=== PATIENT | male | born 1990 | race Caucasian/White ===

== ENCOUNTER → 2016-06-04 | Outpatient (CLI) | payer BC ==
[2016-06-04 11:54] LABS: Basophils % (A) 1 %; CH 34.1; CHCM 35.6; Eosinophils # (A) 0.1 k/uL (0-0.7); Eosinophils % (A) 3 %; HCT 51.2 % (39.0-53.0); HDW 2.67; HGB 17.8 gm/dL (13.0-17.5); Luc # (Auto) 0.18; Luc % (Auto) 3; Lymphocytes # (A) 0.8 k/uL (1.0-4.8); Lymphocytes % (A) 14 %; MCH 33.5 pg (25.0-35.0); MCHC 34.8 g/dL (31.0-37.0); MCV 96.4 fL (80.0-100.0); Mean Platelet Volume 6.6; Monocytes # (A) 0.8 k/uL (0-1.0); Monocytes % (A) 13 %; Neutrophils # (A) 3.8 k/uL (1.3-7.7); Neutrophils % (A) 67 %; RBC 5.31 m/uL (4.30-5.90); RDW 12.8 % (11.5-15.5); WBC 5.7 k/uL (3.8-10.6); WBC (Perox) 5.88
[2016-06-04 12:05] LABS: ALT 28 U/L (21-72); AST 21 U/L (17-59); Alkaline Phosphatase 58 U/L (38-126); Amylase 54 U/L (30-110); Anion Gap 10 mmol/L; Blood Urea Nitrogen 8 mg/dL (9-20); Calcium 9.6 mg/dL (8.4-10.2); Carbon Dioxide 26 mmol/L (22-30); Chloride 106 mmol/L (98-107); Glucose 90 mg/dL (74-99); Non-African American GFR(MDRD) >60 (>60 ml/min/1.73 sqM); Potassium 4.1 mmol/L (3.5-5.1); Sodium 142 mmol/L (137-145); Total Bilirubin 1.3 mg/dL (0.2-1.3); Total Protein 7.5 g/dL (6.3-8.2)
--- NOTE | 2016-06-04 13:12 | XR ---
EXAMINATION TYPE: XR abdomen 2V DATE OF EXAM: 06/04/2016 11:56 AM CLINICAL DATA: 25-year-old male with abdominal pain for 4 days, [facility] COMPARISON: 01/16/2009 FINDINGS: Lung bases are clear. No evidence for free intraperitoneal air. No dilated small bowel or air-fluid levels. Scattered air and stool seen throughout the colon extendi ng distally into the rectum. No significant stool burden. No suspicious calcifications identified. A couple phleboliths are noted in the right hemipelvis. IMPRESSION: No evidence of bowel obstruction or free intraperitoneal air.
== END | disposition home or self-care (01) ==
LOC: LABWHC1 11:26
PROVIDERS: ATTEND Family Medicine
DX: R10.9 Unspecified abdominal pain (principal)
CPT/HCPCS: 36415; 74020; 80053; 82150; 83690; 85025; 86677

== ENCOUNTER → 2017-04-08 | Outpatient (CLI) | payer BC ==
--- NOTE | 2017-04-08 09:52 | XR ---
EXAMINATION TYPE: XR lumbar spine 2 or 3V DATE OF EXAM: 04/08/2017 CLINICAL HISTORY: Back pain TECHNIQUE: Frontal and lateral images of the lumbar spine are obtained. COMPARISON: 12/28/2005 FINDINGS: There are 5 lumbar type vertebral bodies identified. There is superior endplate irregulari ty of the L2 vertebral body although partially obscured by overlying bowel gas. This could represent Schmorl's node deformity, prior injury, or sequela of osteomyelitis/discitis. This was retrospectivel y subtly appreciated on the exam of 2005 anteriorly. Remaining vertebral body heights are maintained . Alignment of the lumbar spine is maintained. The overlying soft tissue appears unremarkable. IMPRESSION: 1. Irregularity of the superior endplate of L2. Further characterization with MRI is recommended to e valuate for degenerative disc disease causing Schmorl's node, or bone marrow replacing process. 2. No evidence of acute fracture or malalignment of the lumbar spine.
== END | disposition home or self-care (01) ==
LOC: RADXRMAIN 08:29
PROVIDERS: ATTEND Family Medicine
DX: R93.7 Abnormal findings on diagnostic imaging of other parts of musculoskeletal system (principal); M54.32 Sciatica, left side
CPT/HCPCS: 72100

== ENCOUNTER → 2017-04-27 | Outpatient (CLI) | payer BC ==
--- NOTE | 2017-04-27 23:21 | MR ---
EXAMINATION TYPE: MR lumbar spine wo/w con DATE OF EXAM: 04/27/2017 COMPARISON: NONE HISTORY: Schmorl's nodes, lumbar region TECHNIQUE: Multiplanar, multisequence images of the lumbar spine were acquired utilizing 6.5 ml mL intravenous G adavist gadolinium contrast. The lumbar vertebra have normal alignment. There is some decreased signal in the L1-2 and L5-S1 discs . There is no compression fracture. There is a Schmorl node on the anterior superior endplate of L2 v ertebral body. Lumbar nerve roots appear normal. Neural foramina are widely patent. The posterior rizwna ments are intact. There is no lumbar paraspinal mass. The visualized sacroiliac joints appear normal. I see no focal bone destruction. The contrast images show no pathologic enhancement. There is a small posterior disc bulge at L5-S1 to wards the left side without any significant impingement on the neural elements. IMPRESSION: Mild spondylotic changes at L1-L2 and L5-S1. No spinal stenosis. No fracture.
== END | disposition home or self-care (01) ==
LOC: RADMRIMAIN 19:14
PROVIDERS: ATTEND Family Medicine
DX: M47.817 Spondylosis without myelopathy or radiculopathy, lumbosacral region (principal)
CPT/HCPCS: 72158; A9581

== ENCOUNTER 2018-06-19 02:45 | Emergency (ER) | payer BC, OTHER ==
[2018-06-19] MEDS ORDERED: KETOROLAC 30 MG/ML 1 ML VIAL IM STA (02:58)
[2018-06-19] MEDS ORDERED: MORPHINE SULFATE 4 MG/ML SYRINGE IM STA ×2 (02:58→02:59)
[2018-06-19] MEDS ORDERED: BACITRACIN 500 UNIT/GM OINT 28.4 GM TUBE TOPICAL STA (03:20)
[2018-06-19] MEDS ORDERED: HYDROmorphone 2 MG/ML 1 ML SYRINGE IVP STA (03:34)
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
[2018-06-19 04:56] VITALS: BP 135/78; PULSE 78; RESP 20; TEMP 97.7
== END 2018-06-19 04:57 | disposition home or self-care (01) ==
LOC: EC 02:45
DX: T22.212A Burn of second degree of left forearm, initial encounter (principal); T23.032A Burn of unspecified degree of multiple left fingers (nail), not including thumb, initial encounter; T31.0 Burns involving less than 10% of body surface; Z88.1 Allergy status to other antibiotic agents; Z88.5 Allergy status to narcotic agent; X11.8XXA Contact with other hot tap-water, initial encounter; Y92.89 Other specified places as the place of occurrence of the external cause
CPT/HCPCS: 99283; 16020; 96374; 96372; J1170; J1885

== ENCOUNTER → 2019-02-09 | Outpatient (CLI) | payer BC ==
--- NOTE | 2019-02-09 09:36 | CT ---
EXAMINATION TYPE: CT abdomen pelvis wo/w con DATE OF EXAM: 02/09/2019 COMPARISON: 01/16/09 HISTORY: lower abd pain post eating CT DLP: 598.1 mGycm CONTRAST: CT scan of the abdomen and pelvis is performed with Oral Contrast and without and with IV Contrast, p atient injected with 100 mL of Isovue 300. FINDINGS: LUNG BASES-: No visible nodule. No infiltrate. LIVER/GB: No calcified gallstones. No space occupying hepatic lesion. Biliary tree is of normal ca liber. PANCREAS: No inflammation. No distinct mass. SPLEEN: No splenic enlargement. No lesion seen. ADRENALS: No nodule. No thickening. KIDNEYS/BLADDER: No hydronephrosis. No nephrolithiasis. No distinct renal mass. Urinary bladder g rossly unremarkable. BOWEL: Normal appendix. Normal bowel caliber. No inflammation. GENITAL ORGANS: No gross abnormality. LYMPH NODES: No greater than 1cm abdominal or pelvic lymph nodes are appreciated. AORTA: No significant abnormality. OSSEOUS STRUCTURES: No significant abnormality is seen. OTHER: No significant additional abnormality is seen. IMPRESSION: 1. No significant abnormality is appreciated at this time.
== END | disposition home or self-care (01) ==
LOC: RADCTMAIN 06:39
PROVIDERS: ATTEND Family Medicine
DX: R10.9 Unspecified abdominal pain (principal)
CPT/HCPCS: 74178; Q9967 ×2

== ENCOUNTER → 2019-02-23 | Outpatient (CLI) | payer BC ==
--- NOTE | 2019-02-23 13:40 | US ---
EXAMINATION TYPE: US abdomen complete DATE OF EXAM: 02/23/2019 COMPARISON: CT 02/09/2019 CLINICAL HISTORY: R10.9 Abd pain. Pain after eating EXAM MEASUREMENTS: Liver Length: 16.6 cm Gallbladder Wall: 0.2 cm CBD: 0.2 cm Spleen: 9.6 cm Right Kidney: 10.3 x 3.7 x 5.6 cm Left Kidney: 12.1 x 4.5 x 4.9 cm Pancreas: Tail obscured by overlying bowel gas, visualized portions appear wnl Liver: wnl Gallbladder: Single echogenic foci without posterior shadowing visualized measuring 0.6 cm suspect small polyp. Evidence for sonographic Quiroz's sign: No CBD: wnl as visualized Spleen: wnl Right Kidney: No hydronephrosis or masses seen Left Kidney: No hydronephrosis or masses seen Upper IVC: wnl Abd Aorta: wnl IMPRESSION: No acute findings identified on this study.
== END | disposition home or self-care (01) ==
LOC: RADUSWWP 12:37
PROVIDERS: ATTEND Family Medicine
DX: R10.9 Unspecified abdominal pain (principal)
CPT/HCPCS: 76700

== ENCOUNTER → 2019-04-02 | Outpatient (CLI) | payer BC | END | disposition home or self-care (01) | LOC: LABWHC1 08:21 | PROVIDERS: ATTEND Internal Medicine | DX: R10.9 Unspecified abdominal pain (principal) | CPT/HCPCS: 36415; 85652; 86140 ==

== ENCOUNTER → 2021-07-15 | Outpatient (CLI) | payer BC ==
[2021-07-15 18:13] LABS: HCT 48.6 % (39.6-50.0); HGB 16.5 g/dL (13.0-17.0); MCH 31.9 pg (27.0-32.0); NRBC Per 100 WBC 0 /100 WBCS (0.0-0.0); Platelet Count 227 X 10*3/uL (140-440); RBC 5.17 X 10*6/uL (4.40-5.60); RDW 12.7 % (11.5-14.5); WBC 6.75 X 10*3/uL (4.50-10.00)
[2021-07-15 18:28] LABS: African American GFR (CKD) 117.6 (60.0-200.0); Albumin 4.9 g/dL (3.8-4.9); Albumin/Globulin Ratio 1.89 (1.60-3.17); Anion Gap 10.8 mmol/L (10.00-18.00); BUN/Creat Ratio 7.06 Ratio (12.00-20.00); Blood Urea Nitrogen 7.1 mg/dL (9.0-27.0); Calcium 9.5 mg/dL (8.7-10.3); Carbon Dioxide 24.7 mmol/L (20.0-27.5); Globulin 2.6 g/dL (1.6-3.3); Non-African American GFR(CKD) 101.5 (60.0-200.0); Potassium 3.9 mmol/L (3.5-5.5); T4, Free (Free Thyroxine) 1.27 ng/dL (0.800-1.800); Total Bilirubin 1.3 mg/dL (0.30-1.20); Total Protein 7.5 g/dL (6.2-8.2)
== END | disposition home or self-care (01) ==
LOC: LABWHC1 11:36
PROVIDERS: ATTEND Psychiatry & Neurology Neurology
DX: M79.10 Myalgia, unspecified site (principal)
CPT/HCPCS: 36415; 80053; 84439; 84443; 84481; 85027

== ENCOUNTER → 2021-08-03 | Outpatient (CLI) | payer BC ==
--- NOTE | 2021-08-03 16:08 | FL ---
EXAMINATION TYPE: FL barium swallow w video DATE OF EXAM: 08/03/2021 COMPARISON: NONE HISTORY: Dysphagia TECHNIQUE: Fluoroscopy. FINDINGS: Fluoroscopic guidance was provided for the procedure performed in conjunction with the [facility] pathology department. Please see complete report forthcoming from the Speech Pathology departmen t. Various consistencies from thin liquid to solids were administered. Fluoroscopy time 1 minute 14 seconds. Number of images: 0. No aspiration or penetration was evident. No significant pooling was observed in the vallecula. There was normal propulsion of the bolus. IMPRESSION: 1. Normal modified barium swallow.
== END | disposition home or self-care (01) ==
LOC: RADFLMAIN 11:11
PROVIDERS: ATTEND Psychiatry & Neurology Neurology
DX: R13.10 Dysphagia, unspecified (principal)
CPT/HCPCS: 74230

== ENCOUNTER → 2023-01-14 | Outpatient (CLI) | payer BC ==
--- NOTE | 2023-01-14 09:45 | XR ---
EXAMINATION TYPE: XR chest 2V DATE OF EXAM: 01/14/2023 9:31 AM CLINICAL INDICATION:Male, 32 years old with history of J18.9 pneumonia; H COMPARISON: Chest radiographs from 01/16/2017 TECHNIQUE: XR chest 2V Frontal and lateral views of the chest. FINDINGS: Lungs/Pleura: There is no evidence of pleural effusion, focal consolidation, or pneumothorax. Pulmonary vascularity: Unremarkable. Heart/mediastinum: Cardiomediastinal silhouette is unremarkable. Musculoskeletal: No acute osseous pathology. IMPRESSION: No acute cardiopulmonary disease/process.
== END | disposition home or self-care (01) ==
LOC: RADXRMAIN 09:09
PROVIDERS: ATTEND Family Medicine
DX: J18.9 Pneumonia, unspecified organism (principal)
CPT/HCPCS: 71046